=== PATIENT | male | born 1940 | race Caucasian/White ===

== ENCOUNTER 2017-02-13 12:01 | Inpatient (IN) | payer OTHER ==
[2017-02-13 12:50] LABS: EOSINOPHIL 2.4 % (0-4.5); MCH 30.1 pg (25.7-33.7); MEAN CELL VOLUME 91.3 fl (80-96); MEAN PLT VOLUME 8.1 fl (7.5-11.1); NEUTROPHILS 69.4 % (42.8-82.8); PLATELET COUNT 205 K/MM3 (134-434); RDW 14.4 % (11.9-15.9); WHITE BLOOD COUNT 6.9 K/mm3 (4.0-10.0)
--- NOTE | 2017-02-13 12:55 | PDOC ---
History of Present Illness - History of Present Illness Initial Comments: 02/13/17 16:30 The patient is a 76 year old male with a past medical hx of HTN, afib (on pradaxa), and hypothyroidism who presents to the ED sent by Dr. Ayala for evaluation of left calf pain for three days. The patient states he has left calf pain when walking. He states this pain lasts for approximately 20 minutes and then goes away. He denies any numbness or tingling. He notes he has never had pain on ambulation in the past. The patient reports he recently had a thyroid biopsy and stopped taking his Pradaxa 2-3 days before the biopsy. He states he then started taking his Pradaxa again on Friday.He reports he went to see Dr. Ayala for his symptoms and had an ultrasound of his left calf. Dr. Ayala is concerned about no circulation below the knee so he sent the patient to the ED for further evaluation. The patient denies chest pain, SOB The patient denies fever, chills The patient denies nausea, vomiting, headache PCP: Dr. Ayala <Cami Paniagua - Last Filed: 02/13/17 19:19> - General History Source: Patient Exam Limitations: No Limitations - History of Present Illness Initial Comments: 02/13/17 13:14 76y F hx of afib on pradaxa presents with L leg pain. Pt states he was <Aureliano Perales - Last Filed: 02/13/17 20:03> - General Chief Complaint: Pain Stated Complaint: PAIN, PCP SENT Time Seen by Provider: 02/13/17 12:20 Past History <Cami Paniagua - Last Filed: 02/13/17 19:19> - Past Medical History Cardiac Disorders: Yes GI Disorders: Yes (enlarged prostate) HTN: Yes Hypercholesterolemia: Yes Thyroid Disease: Yes (hypo) - Surgical History Cardiac Surgery: Yes (stents x 2: 2008) Lung Surgery: Yes (tumor removal) - Psycho/Social/Smoking Cessation Hx Anxiety: No Suicidal Ideation: No Smoking Status: No Smoking History: Never smoked Have you smoked in the past 12 months: No Number of Cigarettes Smoked Daily: 0 Information on smoking cessation initiated: No Hx Alcohol Use: No Drug/Substance Use Hx: No Substance Use Type: None, Alcohol <Aureliano Perales - Last Filed: 02/13/17 20:03> - Past Medical History Allergies/Adverse Reactions: Allergies Allergy/AdvReac Type Severity Reaction Status Date / Time No Known Allergies Allergy Verified 02/09/12 18:14 Home Medications: Ambulatory Orders Aspirin Chewable [Epi Children's Aspirin] 81 mg PO HS #0 tab.chew 03/02/12 Carvedilol Phosphate [Coreg Cr -] 80 mg PO DAILY #0 cap.sr.24h 03/02/12 Dabigatran Etexilate Mesylate [Pradaxa -] 150 mg PO BID #0 cap 03/02/12 Diltiazem HCl [Cardizem] 240 mg PO DAILY #0 tablet 03/02/12 Levothyroxine [Synthroid -] 100 mcg PO DAILY #0 tablet 03/02/12 Lisinopril [Zestril] 40 mg PO DAILY #0 tablet 03/02/12 Rosuvastatin [Crestor -] 20 mg PO HS #0 tablet 03/02/12 Hydralazine HCl [Apresoline -] 25 mg PO BID 02/13/17 Tamsulosin HCl 0.4 mg PO DAILY 02/13/17 Review of Systems - Review of Systems Able to Perform ROS?: Yes Comments:: 02/13/17 16:30 CONSTITUTIONAL: No reported: Fever, Chills, Diaphoresis, Generalized Weakness, Malaise, Loss of Appetite HEENT: No reported: Rhinorrhea, Nasal Congestion, Throat Pain, Throat Swelling, Difficulty Swallowing, Mouth Swelling, Ear Pain, Eye Pain, Visual Changes CARDIOVASCULAR: No reported: Chest Pain, Syncope, Palpitations, Irregular Heart Rate, Lightheadedness, Peripheral Edema RESPIRATORY: No reported: Cough, Shortness of Breath, SOB with Exertion, Orthopnea, Wheezing , Stridor, Hemoptysis GASTROINTESTINAL: No reported: Abdominal pain, Abdominal Distension, Nausea, Vomiting, Diarrhea, Constipation, Melena, Hematochezia GENITOURINARY: No reported: Dysuria, Frequency, Urgency, Hesitancy, Flank Pain, Genital Pain MUSCULOSKELETAL: +Left calf pain. No reported:Joint Swelling, Back pain, Neck Pain SKIN: No reported: Rash, Itching, Pallor HEMEATOLOGIC/IMMUNOLOGIC: No reported: Easy Bleeding, Easy Bruising, Lymphadenopathy, Frequent infections ENDOCRINE: No reported: Unexplained Weight Gain, Unexplained Weight Loss, Heat Intolerance , Cold Intolerance NEUROLOGIC: No reported: Headache, Focal Weakness, Paresthesias, Vertigo, Lightheadedness, Unsteady Gait, Seizure, Mental Status Changes, Incontinence PSYCHIATRIC: No reported: Anxiety, Depression <ArceliaLeoCami - Last Filed: 02/13/17 19:19> *Physical Exam - Vital Signs Last Vital Signs Temp Pulse Resp BP Pulse Ox 97.4 F L 79 18 191/95 99 02/13/17 12:04 02/13/17 12:04 02/13/17 12:04 02/13/17 12:04 02/13/17 12:04 - Physical Exam Comments: 02/13/17 16:30 GENERAL: The patient is awake, alert, and fully oriented, Nontoxic - in no acute distress. HEAD: Normocephalic, atraumatic. EYES: extraocular movements intact, sclera anicteric, conjunctiva clear. ENT: Normal voice, Moist mucous membranes. NECK: Normal range of motion, supple LUNGS: Breath sounds equal, clear to auscultation bilaterally. No wheezes, no rhonchi, no rales. HEART: irregularly irregular ABDOMEN: Soft, nontender, normoactive bowel sounds. No guarding, no rebound. . No CVA tenderness EXTREMITIES: unable to palpate pulsees on LLE, delayed cap refill, slightly cooler than contralateral leg, sensation intact, no calf tenderness, no focal tenderness, color symmetric NEUROLOGICAL: No facial assymetry, Normal speech, PSYCH: Normal mood, normal affect. SKIN: Warm, Dry, normal turgor, <GeraldnicolasCami - Last Filed: 02/13/17 19:19> - Vital Signs Last Vital Signs Temp Pulse Resp BP Pulse Ox 97.4 F L 79 18 191/95 99 02/13/17 12:04 02/13/17 12:04 02/13/17 12:04 02/13/17 12:04 02/13/17 12:04 <Aureliano Perales - Last Filed: 02/13/17 20:03> Heart Score/ECG Review - ECG Impressions Comment:: 02/13/17 16:06 Twelve-lead EKG was performed and reviewed by me. irregularly irergular rate if [address] changes suggestive ofa cute ischemia Impression: atrial fibrillation <Aureliano Perales - Last Filed: 02/13/17 20:03> ED Treatment Course - LABORATORY CBC & Chemistry Diagram: 02/13/17 12:36 02/13/17 12:36 - ADDITIONAL ORDERS Additional order review: Laboratory Results 02/13/17 02/13/17 12:36 12:36 Sodium 141 Potassium 4.0 Chloride 104 Carbon Dioxide 32 Anion Gap 5 L BUN 13 D Creatinine 0.8 Creat Clearance w eGFR > 60 Random Glucose 101 Calcium 8.6 Total Bilirubin 1.4 H D AST 29 D ALT 28 Alkaline Phosphatase 92 Total Protein 7.0 Albumin 3.7 Blood Type AB POSITIVE Antibody Screen Negative - RADIOLOGY Radiograph Interpretation: 02/13/17 19:19 EXAM: CTA abdomen and CTA pelvis and CTA lower extremity DATE: 2017-02-13 14:43: 05.0 IMAGES: 1802 HISTORY: Left arterial occlusion REPORT: Abdominal aorta is patent with no aneurysm seen. Small right renal artery. Diffuse atherosclerotic calcifications are seen likely causing stenosis of the origins of both renal arteries. Iliac and femoral arteries are patent. The bilateral femoral and right popliteal arteries appear patent. At knee level, there is occlusion of the left popliteal artery. Contrast flow is seen in the left anterior tibial artery, likely from collaterals. Minimal contrast flow is seen in the left peroneal and posterior tibial and right posterior tibial arteries. Varicose veins are seen on the left. THIS DOCUMENT HAS BEEN ELECTRONICALLY SIGNED Amish Welch MD 02/13/2017 19:04 FLORES Moreira Please call [facility] [phone] ( [phone]) with questions. <Cami Paniagua - Last Filed: 02/13/17 19:19> - LABORATORY CBC & Chemistry Diagram: 02/13/17 12:36 02/13/17 12:36 <Aureliano Perales - Last Filed: 02/13/17 20:03> Medical Decision Making - Medical Decision Making 02/13/17 19:38 pt with symtoms c/w PAD, currently no pain, +delayed cap refil, extremity is warm to touch, sensation intact CTA shows left pop occlusion with sugestion of callatoral flow distally case dw dr. rojas - agrees with admission - if pt took pradaxa today can hold heparin, but if not, can give hearpin drip will take pt to angio tmorrow npo after midnight will notify dr. asher 02/13/17 19:[address] asher agree with admission to med surg Case discussed in detail with admitting physician including history, physical exam and ancillary studies. Admitting physician has assumed care for the patient, will follow all pending diagnostics and will complete the evaluation and treatment. 02/13/17 20:01 02/13/17 20:03 pts last dose of pradaxa was ths AM and takes it BID <Aureliano Perales - Last Filed: 02/13/17 20:03> *DC/Admit/Observation/Transfer - Attestations Scribe Attestion: 02/13/17 16:30 Documentation prepared by Cami Paniagua, acting as medical file clerk for Aureliano Perales MD, MD/DO. <Cami Paniagua - Last Filed: 02/13/17 19:19> - Discharge Dispostion Admit: Yes <Aureliano Perales - Last Filed: 02/13/17 20:03> Diagnosis at time of Disposition: Peripheral arterial occlusive disease - Discharge Dispostion Condition at time of disposition: Guarded - Referrals Referrals: Lam Ayala MD [Primary Care Provider] -
[2017-02-13 13:14] LABS: ALBUMIN 3.7 g/dl (3.4-5.0); ANION GAP 5 (8-16); BILIRUBIN,TOTAL 1.4 mg/dL (0.2-1.0); CALCIUM 8.6 mg/dL (8.5-10.1); CO2 32 mmol/L (21-32); COCKROFT - GAULT 86.82; CREATININE 0.8 mg/dL (0.7-1.3); GLUCOSE,RANDOM 101 mg/dL (74-106); INR 1.23 (0.82-1.09); PROTHROMBIN TIME (PATIENT) 13.6 SEC (9.98-11.88); SGOT/AST 29 U/L (15-37); SGPT/ALT 28 U/L (12-78)
[2017-02-13 13:15] LABS: ALK PHOS 92 U/L (45-117)
--- NOTE | 2017-02-13 16:07 | EKG ---
Test Reason : Blood Pressure : / mmHG Vent. Rate : 081 BPM Atrial Rate : 117 BPM P-R Int : 000 ms QRS Dur : 078 ms QT Int : 376 ms P-R-T Axes : 000 011 054 degrees QTc Int : 436 ms POOR DATA QUALITY, INTERPRETATION MAY BE ADVERSELY AFFECTED ATRIAL FIBRILLATION ABNORMAL ECG WHEN COMPARED WITH ECG OF 27-FEB-2012 16:08, NO SIGNIFICANT CHANGE WAS FOUND Confirmed by NANCI DAMICO, CHELITA ([id number]) on 02/13/2017 4:07:30 PM Referred By: Confirmed By:CHELITA CHRISTINE MD
[2017-02-13] MEDS ORDERED: HEPARIN NA (PORCINE) 5,000 UNITS/ML 1ML VIAL IVPUSH ONE (20:02)
[2017-02-13] MEDS ORDERED: oxyCODONE HCL 5 MG TABLET PO PRN (20:12)
[2017-02-13] MEDS ORDERED: ONDANSETRON 4 MG/2 ML VIAL IVPB PRN (20:12)
[2017-02-13] MEDS ORDERED: ACETAMINOPHEN 325 MG TABLET (FP) PO PRN (20:12)
[2017-02-13] MEDS ORDERED: HEPARIN INFUSION - 500 ML IVPB ONE (20:27)
[2017-02-13] MEDS ORDERED: HEPARIN NA (PORCINE) 5,000 UNITS/ML 1ML VIAL ONE (20:27)
[2017-02-13] MEDS: HEPARIN INFUSION - 500 ML IVPB SCH (20:35)
[2017-02-13] MEDS ORDERED: ROSUVASTATIN CA 40 MG TABLET PO SCH (22:00)
[2017-02-13] MEDS ORDERED: ASPIRIN 81 MG CHEWABLE TABLETS PO SCH (22:00)
[2017-02-13] MEDS: hydrALAZINE HCL 25 MG TABLET (FP) PO SCH (23:07)
[2017-02-13] MEDS: DOCUSATE SODIUM 100 MG CAPSULE (FP) PO SCH (23:08)
[2017-02-13] MEDS ORDERED: ROSUVASTATIN CA 10 MG TABLET (FP) PO SCH (23:15)
[2017-02-13] MEDS ORDERED: ROSUVASTATIN CA 20 MG TABLET (FP) PO SCH ×2 (23:15)
[2017-02-14 04:48] VITALS: BMI 23.3
[2017-02-14] MEDS ORDERED: LEVOTHYROXINE NA 100 MCG TABLET (FP) PO SCH ×2 (07:00→10:00)
[2017-02-14 07:17] LABS: EOSINOPHIL 2.6 % (0-4.5); MCH 30.5 pg (25.7-33.7); MCHC 33.6 g/dl (32.0-35.9); MEAN CELL VOLUME 90.6 fl (80-96); MEAN PLT VOLUME 8.1 fl (7.5-11.1); NEUTROPHILS 66.1 % (42.8-82.8); PLATELET COUNT 209 K/MM3 (134-434); RDW 14.5 % (11.9-15.9); WHITE BLOOD COUNT 7.1 K/mm3 (4.0-10.0)
[2017-02-14 07:39] LABS: CALCIUM 8.7 mg/dL (8.5-10.1); COCKROFT - GAULT 73.68; CREATININE 0.9 mg/dL (0.7-1.3); MAGNESIUM 2.1 mg/dL (1.8-2.4); PHOSPHOROUS 4.3 mg/dL (2.5-4.9)
[2017-02-14] MEDS ORDERED: HEPARIN NA (PORCINE) 5,000 UNITS/ML 1ML VIAL IVPUSH PRN ×2 (09:03)
[2017-02-14] MEDS: HEPARIN INFUSION - 500 ML IVPB SCH (09:24)
[2017-02-14] MEDS: hydrALAZINE HCL 25 MG TABLET (FP) PO SCH ×2 (09:56→21:33)
[2017-02-14] MEDS ORDERED: PT OWN MED DRAWER 7, Y5N ONE (09:59)
[2017-02-14] MEDS ORDERED: POLYETHYLENE GLYCOL 3350 119 GM BTL PO SCH (10:00)
[2017-02-14] MEDS ORDERED: LISINOPRIL 20 MG TABLET (FP) PO SCH (10:00)
[2017-02-14] MEDS ORDERED: CARVEDILOL PHOSPHATE 80 MG PO SCH (10:00)
[2017-02-14] MEDS ORDERED: TAMSULOSIN HCL 0.4 MG CAP.ER.24H (FP) PO SCH (10:00)
[2017-02-14] MEDS: DOCUSATE SODIUM 100 MG CAPSULE (FP) PO SCH ×2 (10:03→21:33)
--- NOTE | 2017-02-14 12:19 | HP ---
Admitting History and Physical - Primary Care Physician PCP: Lam Ayala - Admission Chief Complaint: My leg hurt when walking History of Present Illness: Mr Boggs is a very pleasant 76 year old male who comes in with pain in his left leg while walking. He says he is very active and has been doing really well. However on Friday he noted that he was having severe pain in his left leg after walking. It worsened with the distance he walks. He would sit for 10-15 minutes and the pain would resolve. It would recur with exertion. On Friday he did not walk much so did not have pain. However Friday and the pain was still present with ambulation so he presented to Dr Ayala who recommended that he come to the ER for evaluation. Aside from the leg pain he is without complaint. He denies fevers, chills, lightheadedness, dizziness, passing out, chest pain, chest pressure, shortness of breath, coughing, nausea, vomiting, diarrhea, constipation, difficulty or pain on urination, or swelling. He says he is pain free now. History Source: Patient Limitations to Obtaining History: No Limitations - Past Medical History Cardiovascular: Yes: HTN Renal/: Yes: BPH Endocrine: Yes: Hypothyroidism - Past Surgical History Past Surgical History: Yes: Cataract Removal - Smoking History Smoking history: Never smoked Have you smoked in the past 12 months: No Aproximately how many cigarettes per day: 0 - Alcohol/Substance Use Hx Alcohol Use: No History of Substance Use: reports: None - Social History Usual Living Arrangement: Yes: Alone ADL: Independent History of Recent Travel: No Home Medications - Allergies Allergies/Adverse Reactions: Allergies Allergy/AdvReac Type Severity Reaction Status Date / Time No Known Allergies Allergy Verified 02/09/12 18:14 - Home Medications Home Medications: Ambulatory Orders Aspirin Chewable [Epi Children's Aspirin] 81 mg PO HS #0 tab.chew 03/02/12 Carvedilol Phosphate [Coreg Cr -] 80 mg PO DAILY #0 cap.sr.24h 03/02/12 Dabigatran Etexilate Mesylate [Pradaxa -] 150 mg PO BID #0 cap 03/02/12 Diltiazem HCl [Cardizem] 240 mg PO DAILY #0 tablet 03/02/12 Levothyroxine [Synthroid -] 100 mcg PO DAILY #0 tablet 03/02/12 Lisinopril [Zestril] 40 mg PO DAILY #0 tablet 03/02/12 Rosuvastatin [Crestor -] 20 mg PO HS #0 tablet 03/02/12 Hydralazine HCl [Apresoline -] 25 mg PO BID 02/13/17 Tamsulosin HCl 0.4 mg PO DAILY 02/13/17 Family Disease History - Family Disease History Family Disease History: CA: Father Review of Systems Findings/Remarks: Full review of systems obtained, as per HPI and otherwise negative Physical Examination Vital Signs: Vital Signs Temperature 98.3 F 02/14/17 11:49 Pulse Rate 90 02/14/17 11:49 Respiratory Rate 20 02/14/17 11:49 Blood Pressure 165/90 02/14/17 11:49 O2 Sat by Pulse Oximetry (%) 97 02/13/17 23:00 Constitutional: Yes: Well Nourished, No Distress, Calm Eyes: Yes: Conjunctiva Clear, EOM Intact HENT: Yes: Atraumatic, Normocephalic Cardiovascular: Yes: Regular Rate and Rhythm. No: Gallop, Murmur, Rub Respiratory: Yes: Regular, CTA Bilaterally. No: Rales, Rhonchi, Wheezes Gastrointestinal: Yes: Normal Bowel Sounds, Soft. No: Distention, Tenderness Extremities: Yes: WNL Edema: No Labs: CBC, BMP 02/14/17 06:15 02/14/17 06:15 Imaging - Results EKG: Image Reviewed Problem List - Problems (1) Peripheral arterial occlusive disease Assessment/Plan: -patient with claudication, concern for possible thrombus -admit to the hospital -holding anticoagulation for intervention -vascular surgery following and planning on angiogram with possible thrombectomy Code(s): I77.9 - DISORDER OF ARTERIES AND ARTERIOLES, UNSPECIFIED (2) HTN (hypertension) Assessment/Plan: -continue coreg, diltiazem, lisinopril, and hydralazine Code(s): I10 - ESSENTIAL (PRIMARY) HYPERTENSION Qualifiers: Hypertension type: essential hypertension Qualified Code(s): I10 - Essential (primary) hypertension (3) Hypothyroid Assessment/Plan: -continue levothyroxine Code(s): E03.9 - HYPOTHYROIDISM, UNSPECIFIED (4) BPH (benign prostatic hyperplasia) Assessment/Plan: -continue tamsulosin Code(s): N40.0 - BENIGN PROSTATIC HYPERPLASIA WITHOUT LOWER URINRY TRACT SYMP Qualifiers: Lower urinary tract symptom presence: symptoms absent
[2017-02-14] MEDS ORDERED: MIDAZOLAM HCL 2 MG/2 ML SINGLE DOSE VIAL ONE ×3 (14:46→14:56)
[2017-02-14] MEDS ORDERED: ceFAZolin SODIUM 1 GM VIAL IVPB ONE (15:00)
[2017-02-14] MEDS ORDERED: ceFAZolin SODIUM 1 GM VIAL ONE (15:01)
[2017-02-14] MEDS ORDERED: HEPARIN NA (PORCINE) 5,000 UNITS/ML 1ML VIAL ONE ×2 (15:18→16:01)
[2017-02-14] MEDS ORDERED: PROPOFOL 20 ML ONE (15:44)
[2017-02-14] MEDS ORDERED: LIDOCAINE HCL 1%, 10 MG/ML (20ML VIAL) IJ ONE (16:45)
--- NOTE | 2017-02-14 16:54 | OP ---
Operative Note - Note: Operative Date: 02/14/17 Pre-Operative Diagnosis: LLE claudication Operation: Aortogram, LLE angiogram, POP artery angioplasty, tibial artery angioplasty , open thrombectomy of Popliteal artery, tibial artery Findings: thrombus in popliteal artery and tibial arteries Post-Operative Diagnosis: Same as Pre-op Surgeon: Farhan Morales Anesthesia: Fractional Estimated Blood Loss (mls): 100 Operative Report Dictated: Yes
[2017-02-14] MEDS ORDERED: oxyCODONE HCL 5 MG TABLET PO PRN (17:04)
[2017-02-14] MEDS ORDERED: ACETAMINOPHEN 325 MG TABLET (FP) PO PRN (17:04)
[2017-02-14] MEDS ORDERED: ONDANSETRON 4 MG/2 ML VIAL IVPB PRN (17:04)
[2017-02-14] MEDS ORDERED: ONDANSETRON 4 MG/2 ML VIAL IVPUSH PRN (17:09)
--- NOTE | 2017-02-14 17:53 | PN ---
Progress Note (short form) - Note Progress Note: Vascular Surgery S/P open thrombectomy for thrombus in popliteal and tibial arteries. Pradaxa restarted after operation. Palpable PT pulse. Can be out of be to chair yanira. Can ambulate on friday. Will follow Farhan Morales DO
[2017-02-14] MEDS: DABIGATRAN ETEXILATE MESYLATE 150 MG CAPSULE PO SCH ×2 (18:00→21:52)
[2017-02-14] MEDS: LACTATED RINGERS SOLUTION 1,000 ML IV SCH (18:17)
[2017-02-14] MEDS: ROSUVASTATIN CA 20 MG TABLET (FP) PO SCH (21:31)
[2017-02-14] MEDS: ASPIRIN 81 MG CHEWABLE TABLETS PO SCH (21:31)
[2017-02-15] MEDS: LEVOTHYROXINE NA 100 MCG TABLET (FP) PO SCH (06:28)
--- NOTE | 2017-02-15 07:59 | OP ---
DATE OF OPERATION: 02/14/2017 PREOPERATIVE DIAGNOSIS: Left lower extremity claudiation. POSTOPERATIVE DIAGNOSIS: Left lower extremity claudiation. PROCEDURE: Aortogram, left lower extremity angiogram, popliteal artery, anterior tibial artery angioplasty, open thrombectomy of popliteal artery and anterior tibial artery. SURGEON: Farhan Aguirre MD ANESTHESIA: Fractional. BLOOD LOSS: 100 mL. INDICATIONS: The patient is a 71-year-old male who came into his PMDs office complaining of one-block claudication. He recently had a thyroid biopsy done last week, and his Pradaxa was stopped for atrial fibrillation. He was then restarted thereafter, but on Friday, he developed a sharp pain whenever he walked. At this point, he came into the ER. He had a CTA performed that showed that he had a popliteal artery occlusion on the left side going into the TP trunk. At this point, it was though that we would do an angiogram and see if he needed an open thrombectomy versus just traditional angioplasty. Patient was consented for the procedure understanding all risks, benefits, and alternatives, and then taken to the operating room. PROCEDURE IN DETAIL: Once in the operating suite, he was placed on the operating table in the supine manner, and the area of the left and right groins were prepped and draped in the sterile surgical manner. We then went ahead and injected 10 mL of 0.5% lidocaine over the right common femoral artery. We then used our micropuncture needle, punctured the right common femoral artery, a micropuncture wire inserted, micropuncture sheath inserted, and a traditional 5-Belarusian sheath was inserted. We then placed a 0.035 floppy guidewire up into the aorta followed by a Merit catheter. We then shot an aortogram by hand injection which showed that the aorta and iliac arteries were without any disease, but were quite tortuous. We then placed a 0.035 stiff guidewire up and over into the left common femoral artery, and our Merit catheter followed. We then shot an angiogram of the left lower extremity showing that the common femoral artery, profunda, and the SFA were patent. Behind-knee popliteal artery was occluded with clot. TP trunk was occluded, and the proximal PT artery was occluded, but the main runoff was PT into the foot. At this point, we placed a 0.035 stiff guidewire into the SFA to guide our Merit catheter, placed a 6 x 45 crossover sheath, 5000 units of IV heparin were administered to the patient. We then went ahead and placed a 0.[address] the way down into the PT artery in exchange for a 0.014 automatic pilot mechanic wire. We then used a 2.5 x 210 balloon and performed angioplasty of the tibial artery into the popliteal artery. We then used a 4 x 8 Ultraverse balloon and performed angioplasty of the popliteal artery. We then shot an angiogram of the left lower extremity showing that the clot was still present and there was no resolution. At this point, we decided that we would just do an open thrombectomy when we went over to the left groin and made a 7-cm incision over the palpable left common femoral artery pulse. We then went used Bovie cautery and got down to the femoral sheath. Femoral sheath was then opened. Left common femoral artery was dissected, profunda was dissected, and the SFA was dissected. We then got control of all 3 blood vessels. We then admitted 3000 units of IV heparin. We then went ahead and used a No. 11 blade and made a transverse incision in the left common femoral artery. We then went ahead and used a No. 4 Phoebe, and under fluoroscopy, we were able to retrieve all the clot from the posterior tibial artery and the popliteal artery by making multiple passes. We then went ahead and placed a 5-Belarusian sheath into our arteriotomy site and shot an angiogram of the left lower extremity showing that there was good brisk flow, the popliteal artery was patent, and the posterior tibial artery went all the way into the foot. At this point, we removed our sheath. We then used 6-0 Prolene double-arm and closed the artery in a continuous manner. Once the artery was closed, we opened the distal artery first, then, the proximal artery. We then irrigated the wound copiously. There was no bleeding. Surgicel was placed. Then, 3-0 Vicryl was used, and subcutaneous tissue was approximated in an interrupted manner. Skin was closed with skin anna. We then brought our crossover sheath up and over, and StarClose device was deployed in the right common femoral artery. Pressure was held in the right common femoral artery for 5 minutes. There was no bleeding. Area was wet and dried, and Dermabond was placed. The patient tolerated the procedure with no complications. At the end of the procedure, patient had palpable PT pulse. Patient tolerated the procedure. There were no complications. FARHAN AGUIRRE DO [id number]
[2017-02-15 08:34] LABS: BASOPHIL 0.8 % (0-2.0); EOSINOPHIL 1.5 % (0-4.5); MCH 30.3 pg (25.7-33.7); MCHC 33.2 g/dl (32.0-35.9); MEAN CELL VOLUME 91.1 fl (80-96); MEAN PLT VOLUME 8.2 fl (7.5-11.1); NEUTROPHILS 67.5 % (42.8-82.8); PLATELET COUNT 173 K/MM3 (134-434); RDW 14.4 % (11.9-15.9); WHITE BLOOD COUNT 7.7 K/mm3 (4.0-10.0)
[2017-02-15] MEDS ORDERED: PT OWN MED DRAWER 7, Y5N ONE ×2 (08:49→21:00)
[2017-02-15 08:56] LABS: CALCIUM 8.1 mg/dL (8.5-10.1); COCKROFT - GAULT 73.68; CREATININE 0.9 mg/dL (0.7-1.3); MAGNESIUM 1.9 mg/dL (1.8-2.4); PHOSPHOROUS 4.2 mg/dL (2.5-4.9)
[2017-02-15] MEDS: TAMSULOSIN HCL 0.4 MG CAP.ER.24H (FP) PO SCH (09:25)
[2017-02-15] MEDS: hydrALAZINE HCL 25 MG TABLET (FP) PO SCH ×2 (09:35→23:17)
[2017-02-15] MEDS: DOCUSATE SODIUM 100 MG CAPSULE (FP) PO SCH ×2 (09:35→23:16)
[2017-02-15] MEDS: LISINOPRIL 20 MG TABLET (FP) PO SCH (09:35)
[2017-02-15] MEDS: CARVEDILOL PHOSPHATE 80 MG PO SCH (09:37)
[2017-02-15] MEDS: POLYETHYLENE GLYCOL 3350 119 GM BTL PO SCH (09:38)
[2017-02-15] MEDS: DABIGATRAN ETEXILATE MESYLATE 150 MG CAPSULE PO SCH ×2 (09:38→23:17)
--- NOTE | 2017-02-15 09:38 | PN ---
Progress Note (short form) - Note Progress Note: Vascular Surgery Pt seen and examined. POD#1 open thrombectomy LLE Palpable PT pulse. Can ambulate. Cont pradaxa Farhan Morales DO
--- NOTE | 2017-02-15 11:08 | PN ---
Progress Note, Physician Chief Complaint: Left LE Pain History of Present Illness: 76 year old male H?o HTN, Dyslipedemia, PVD ,present with Left Calf pain while walking , underwent Left POP and Tibial A angioplasty and open thrombectomy on , now on oral AC. - Current Medication List Current Medications: Active Medications Acetaminophen (Tylenol -) 650 mg PO Q4H PRN PRN Reason: FEVER OR PAIN Aspirin (Asa -) 81 mg PO HS [facility] Last Admin: 02/14/17 21:31 Dose: 81 mg Carvedilol (Coreg Cr -) 80 mg PO DAILY [facility] Last Admin: 02/15/17 09:37 Dose: 80 mg Dabigatran (Pradaxa -) 150 mg PO BID [facility] Last Admin: 02/15/17 09:38 Dose: 150 mg Diltiazem HCl (Cardizem Cd -) 240 mg PO DAILY [facility] Last Admin: 02/15/17 09:36 Dose: 240 mg Docusate Sodium (Colace -) 100 mg PO BID [facility] Last Admin: 02/15/17 09:35 Dose: 100 mg Hydralazine HCl (Apresoline -) 25 mg PO BID [facility] Last Admin: 02/15/17 09:35 Dose: 25 mg Lactated Ringer's (Lactated Ringers Solution) 1,000 mls @ 125 mls/hr IV ASDIR [facility] Last Admin: 02/14/17 18:17 Dose: 125 mls/hr Levothyroxine Sodium (Synthroid -) 100 mcg PO DAILY@0700 [facility] Last Admin: 02/15/17 06:28 Dose: 100 mcg Lisinopril (Prinivil) 40 mg PO DAILY [facility] Last Admin: 02/15/17 09:35 Dose: 40 mg Ondansetron HCl (Zofran Injection) 4 mg IVPB Q6H PRN PRN Reason: NAUSEA Oxycodone HCl (Roxicodone -) 5 mg PO Q4H PRN PRN Reason: PAIN Last Admin: 02/14/17 21:31 Dose: 5 mg Polyethylene Glycol (Miralax (For Daily Use) -) 17 gm PO DAILY [facility] Last Admin: 02/15/17 09:38 Dose: 17 gm Rosuvastatin Calcium (Crestor -) 20 mg PO HS [facility] Last Admin: 02/14/17 21:31 Dose: 20 mg Tamsulosin HCl (Flomax -) 0.4 mg PO DAILY@0830 [facility] Last Admin: 02/15/17 09:25 Dose: 0.4 mg - Objective Vital Signs: Vital Signs Temperature 99 F 02/15/17 09:33 Pulse Rate 100 H 02/15/17 09:33 Respiratory Rate 18 02/15/17 09:33 Blood Pressure 159/81 02/15/17 09:33 O2 Sat by Pulse Oximetry (%) 97 02/14/17 21:00 Constitutional: Yes: Well Nourished, No Distress Eyes: Yes: WNL, Conjunctiva Clear, EOM Intact HENT: Yes: WNL, Atraumatic, Normocephalic Neck: Yes: WNL, Supple, Trachea Midline Cardiovascular: Yes: WNL Respiratory: Yes: WNL, Regular, CTA Bilaterally Gastrointestinal: Yes: WNL, Normal Bowel Sounds, Soft, Hematemesis ...Rectal Exam: Yes: Deferred Genitourinary: Yes: WNL Musculoskeletal: Yes: WNL. No: Back Pain Extremities: Yes: WNL. No: Calf Tenderness Edema: No Peripheral Pulses WNL: Yes Peripheral Pulses: Left Doralis Pedis: 1+, Right Dorsalis Pedis: 1+ Integumentary: Yes: WNL Wound/Incision: Yes: Clean/Dry Neurological: Yes: WNL, Alert, Oriented ...Motor Strength: WNL Psychiatric: Yes: WNL, Alert, Oriented Labs: CBC, BMP 02/15/17 08:15 02/15/17 08:15 INR, PTT INR 1.23 (0.82-1.09) H 02/13/17 12:36 - ....Imaging Ultrasound: Image Reviewed, Other (LE angigram with Distal runoff show Left Popliteal A thrombus extending to ant tibial A) Problem List - Problems (1) Peripheral arterial occlusive disease Assessment/Plan: Patient underwent angioplasty and open thrombectomy by Dr Morales, doing well now on oral AC, peripheral pulse are palpable. Code(s): I77.9 - DISORDER OF ARTERIES AND ARTERIOLES, UNSPECIFIED (2) HTN (hypertension) Assessment/Plan: well controlled on current medications Cont same. Code(s): I10 - ESSENTIAL (PRIMARY) HYPERTENSION Qualifiers: Hypertension type: essential hypertension Qualified Code(s): I10 - Essential (primary) hypertension (3) BPH (benign prostatic hyperplasia) Assessment/Plan: Chronic no active issue cont home meds Code(s): N40.0 - BENIGN PROSTATIC HYPERPLASIA WITHOUT LOWER URINRY TRACT SYMP Qualifiers: Lower urinary tract symptom presence: symptoms absent (4) Hypothyroid Assessment/Plan: On Levothyroxine cont same dose F/U TSH as out patient. Code(s): E03.9 - HYPOTHYROIDISM, UNSPECIFIED (5) Hyperlipidemia Assessment/Plan: On Crestor at home cont same F/U Lipid panel as out patient. Code(s): E78.5 - HYPERLIPIDEMIA, UNSPECIFIED
--- NOTE | 2017-02-15 11:57 | PN ---
Progress Note (short form) - Note Progress Note: Post Anesthesia note POD#1, S/P left lower extremity thrombectomy in MAC and local. Pat seen and examined, VSS. No complaints, No post anesthesia complications. Signing off.
[2017-02-15] MEDS: LACTATED RINGERS SOLUTION 1,000 ML IV SCH (22:01)
[2017-02-15] MEDS: ASPIRIN 81 MG CHEWABLE TABLETS PO SCH (23:16)
[2017-02-15] MEDS: ROSUVASTATIN CA 20 MG TABLET (FP) PO SCH (23:16)
[2017-02-16] MEDS: LEVOTHYROXINE NA 100 MCG TABLET (FP) PO SCH (06:12)
[2017-02-16 08:56] LABS: BASOPHIL 0.5 % (0-2.0); EOSINOPHIL 4.1 % (0-4.5); MCH 30.6 pg (25.7-33.7); MCHC 33.7 g/dl (32.0-35.9); MEAN CELL VOLUME 90.8 fl (80-96); MEAN PLT VOLUME 8.4 fl (7.5-11.1); NEUTROPHILS 67.8 % (42.8-82.8); PLATELET COUNT 167 K/MM3 (134-434); RDW 14.4 % (11.9-15.9); WHITE BLOOD COUNT 7.2 K/mm3 (4.0-10.0)
[2017-02-16 09:14] LABS: ALBUMIN 3.2 g/dl (3.4-5.0); ALK PHOS 79 U/L (45-117); ANION GAP 8 (8-16); BILIRUBIN,TOTAL 1.9 mg/dL (0.2-1.0); CALCIUM 8.1 mg/dL (8.5-10.1); CO2 29 mmol/L (21-32); COCKROFT - GAULT 66.32; GLUCOSE,RANDOM 108 mg/dL (74-106); SGOT/AST 22 U/L (15-37); SGPT/ALT 23 U/L (12-78); TOT PROT 6.3 g/dl (6.4-8.2)
[2017-02-16] MEDS: TAMSULOSIN HCL 0.4 MG CAP.ER.24H (FP) PO SCH (09:15)
[2017-02-16] MEDS: hydrALAZINE HCL 25 MG TABLET (FP) PO SCH ×2 (10:09→21:41)
[2017-02-16] MEDS: LISINOPRIL 20 MG TABLET (FP) PO SCH (10:09)
[2017-02-16] MEDS: DOCUSATE SODIUM 100 MG CAPSULE (FP) PO SCH ×2 (10:10→21:40)
[2017-02-16] MEDS: CARVEDILOL PHOSPHATE 80 MG PO SCH (10:11)
[2017-02-16] MEDS: POLYETHYLENE GLYCOL 3350 119 GM BTL PO SCH (10:11)
[2017-02-16] MEDS: DABIGATRAN ETEXILATE MESYLATE 150 MG CAPSULE PO SCH ×2 (10:15→21:41)
--- NOTE | 2017-02-16 11:01 | PN ---
[id number] HTN, Dyslipedemia, PVD ,present with Left Calf pain while walking , underwent Left POP and Tibial A angioplasty and open thrombectomy on , now on oral AC. - Current Medication List Current Medications: Active Medications Acetaminophen (Tylenol -) 650 mg PO Q4H PRN PRN Reason: FEVER OR PAIN Aspirin (Asa -) 81 mg PO HS [facility] Last Admin: 02/15/17 23:16 Dose: 81 mg Carvedilol (Coreg Cr -) 80 mg PO DAILY [facility] Last Admin: 02/16/17 10:11 Dose: 80 mg Dabigatran (Pradaxa -) 150 mg PO BID [facility] Last Admin: 02/16/17 10:15 Dose: 150 mg Diltiazem HCl (Cardizem Cd -) 240 mg PO DAILY [facility] Last Admin: 02/16/17 10:09 Dose: 240 mg Docusate Sodium (Colace -) 100 mg PO BID [facility] Last Admin: 02/16/17 10:10 Dose: 100 mg Hydralazine HCl (Apresoline -) 25 mg PO BID [facility] Last Admin: 02/16/17 10:09 Dose: 25 mg Lactated Ringer's (Lactated Ringers Solution) 1,000 mls @ 125 mls/hr IV ASDIR [facility] Last Admin: 02/15/17 22:01 Dose: Not Given Levothyroxine Sodium (Synthroid -) 100 mcg PO DAILY@0700 [facility] Last Admin: 02/16/17 06:12 Dose: 100 mcg Lisinopril (Prinivil) 40 mg PO DAILY [facility] Last Admin: 02/16/17 10:09 Dose: 40 mg Ondansetron HCl (Zofran Injection) 4 mg IVPB Q6H PRN PRN Reason: NAUSEA Oxycodone HCl (Roxicodone -) 5 mg PO Q4H PRN PRN Reason: PAIN Last Admin: 02/14/17 21:31 Dose: 5 mg Polyethylene Glycol (Miralax (For Daily Use) -) 17 gm PO DAILY [facility] Last Admin: 02/16/17 10:11 Dose: 17 gm Rosuvastatin Calcium (Crestor -) 20 mg PO HS [facility] Last Admin: 02/15/17 23:16 Dose: 20 mg Tamsulosin HCl (Flomax -) 0.4 mg PO DAILY@0830 [facility] Last Admin: 02/16/17 09:15 Dose: 0.4 mg - Objective Vital Signs: Vital Signs Temperature 97.7 F 02/16/17 06:00 Pulse Rate 83 02/16/17 06:00 Respiratory Rate 20 02/16/17 06:00 Blood Pressure 118/69 02/16/17 06:00 O2 Sat by Pulse Oximetry (%) 97 02/15/17 21:00 Elderly man comfortable Denies any new Complaint HEENT: Mm moist no anemia, PERRLA EOMI NECK: No JVD No Bruit , Trachea central CHEST: CTA B/L CVS; S1S2 R no m/g/r ABD; No distntion, non tender Bs + EXT: Left LE s/p Thrpombectomy, wound is clean, DP plapable, no calf tenderness [employer] COORDINATOR: AOX3, non focal Constitutional: Yes: Well Nourished Labs: CBC, BMP 02/16/17 07:45 02/16/17 07:45 INR, PTT INR 1.23 (0.82-1.09) H 02/13/17 12:36 - ....Imaging Cat Scan: Report Reviewed, Image Reviewed Problem List - Problems (1) Peripheral arterial occlusive disease Assessment/Plan: Patient underwent angioplasty and open thrombectomy by Dr Morales, doing well now on oral AC, peripheral pulse are palpable. Code(s): I77.9 - DISORDER OF ARTERIES AND ARTERIOLES, UNSPECIFIED (2) HTN (hypertension) Assessment/Plan: well controlled on current medications Cont same. Code(s): I10 - ESSENTIAL (PRIMARY) HYPERTENSION Qualifiers: Hypertension type: essential hypertension Qualified Code(s): I10 - Essential (primary) hypertension (3) BPH (benign prostatic hyperplasia) Assessment/Plan: Chronic no active issue cont home meds Code(s): N40.0 - BENIGN PROSTATIC HYPERPLASIA WITHOUT LOWER URINRY TRACT SYMP Qualifiers: Lower urinary tract symptom presence: symptoms absent (4) Hypothyroid Assessment/Plan: On Levothyroxine cont same dose F/U TSH as out patient. Code(s): E03.9 - HYPOTHYROIDISM, UNSPECIFIED (5) Hyperlipidemia Assessment/Plan: On Crestor at home cont same F/U Lipid panel as out patient. Code(s): E78.5 - HYPERLIPIDEMIA, UNSPECIFIED
[2017-02-16] MEDS: ROSUVASTATIN CA 20 MG TABLET (FP) PO SCH (21:40)
[2017-02-16] MEDS: ASPIRIN 81 MG CHEWABLE TABLETS PO SCH (21:40)
[2017-02-17] MEDS: LEVOTHYROXINE NA 100 MCG TABLET (FP) PO SCH (06:35)
[2017-02-17 07:36] LABS: BASOPHIL 0.7 % (0-2.0); EOSINOPHIL 5.6 % (0-4.5); MCH 30.7 pg (25.7-33.7); MCHC 33.7 g/dl (32.0-35.9); MEAN CELL VOLUME 91.1 fl (80-96); MEAN PLT VOLUME 8.5 fl (7.5-11.1); NEUTROPHILS 64.4 % (42.8-82.8); PLATELET COUNT 175 K/MM3 (134-434); RDW 14.4 % (11.9-15.9); WHITE BLOOD COUNT 6.1 K/mm3 (4.0-10.0)
[2017-02-17 08:09] LABS: ALBUMIN 3.1 g/dl (3.4-5.0); ALK PHOS 82 U/L (45-117); ANION GAP 8 (8-16); BILIRUBIN,TOTAL 1.4 mg/dL (0.2-1.0); CO2 30 mmol/L (21-32); CREATININE 0.8 mg/dL (0.7-1.3); GLUCOSE,RANDOM 109 mg/dL (74-106); SGOT/AST 31 U/L (15-37); SGPT/ALT 31 U/L (12-78); TOT PROT 6.3 g/dl (6.4-8.2)
[2017-02-17] MEDS: TAMSULOSIN HCL 0.4 MG CAP.ER.24H (FP) PO SCH (08:29)
[2017-02-17 09:18] VITALS: BP 139/70; PULSE 86; TEMP 97.2
[2017-02-17] MEDS ORDERED: PT OWN MED DRAWER 7, Y5N ONE (09:36)
[2017-02-17] MEDS: LISINOPRIL 20 MG TABLET (FP) PO SCH (09:38)
[2017-02-17] MEDS: hydrALAZINE HCL 25 MG TABLET (FP) PO SCH (09:38)
[2017-02-17] MEDS: DOCUSATE SODIUM 100 MG CAPSULE (FP) PO SCH (09:38)
[2017-02-17] MEDS: POLYETHYLENE GLYCOL 3350 119 GM BTL PO SCH (09:39)
[2017-02-17] MEDS: DABIGATRAN ETEXILATE MESYLATE 150 MG CAPSULE PO SCH (09:39)
[2017-02-17] MEDS: CARVEDILOL PHOSPHATE 80 MG PO SCH (09:40)
--- NOTE | 2017-02-17 10:02 | PN ---
Progress Note (short form) - Note Progress Note: Pt with complaints of occasional cramping pain to back of left knee. Ambulating without assistance. Vital Signs Period Temp Pulse Resp BP Sys/Michaels Pulse Ox Last 24 Hr 97.2 F-98.7 F 61-86 16-20 131-141/59-94 97 PE: Left lower extremity: Inc c/d/i with anna to groin. No erythema, drainage or masses. palpable DP/PT pulse. foot warm. Calf soft and without swelling. CBC, BMP 02/17/17 05:35 02/17/17 05:35 A/P: 76 yo male s/p left lower extremity thrombectomy, POD#3 Dressing changed today to left groin, incision healing well. Keep area clean and dry. Continue Joyce D/w Dr. Morales, follow-up next Friday in the wound clinic for staple removal
--- NOTE | 2017-02-17 12:26 | DS ---
Physical Examination Vital Signs: Vital Signs Temperature 97.2 F L 02/17/17 09:17 Pulse Rate 86 02/17/17 09:17 Respiratory Rate 20 02/17/17 09:17 Blood Pressure 139/70 02/17/17 09:17 O2 Sat by Pulse Oximetry (%) 99 02/17/17 11:00 Constitutional: Yes: Well Nourished, No Distress, Calm Cardiovascular: Yes: Regular Rate and Rhythm. No: Gallop, Murmur, Rub Respiratory: Yes: Regular, CTA Bilaterally. No: Rales, Rhonchi, Wheezes Gastrointestinal: Yes: Normal Bowel Sounds, Soft. No: Distention, Tenderness Extremities: Yes: WNL Edema: Yes Edema: LLE: Trace Labs: CBC, BMP 02/17/17 05:35 02/17/17 05:35 Discharge Summary Reason For Visit: PERIPHERAL ARTERIAL OCCLUSIVE DISEASE Current Active Problems BPH (benign prostatic hyperplasia) (Acute) HTN (hypertension) (Acute) Hyperlipidemia (Acute) Hypothyroid (Acute) Peripheral arterial occlusive disease (Acute) Hospital Course: (1) Peripheral arterial occlusive disease Code(s): I77.9 - DISORDER OF ARTERIES AND ARTERIOLES, UNSPECIFIED (2) HTN (hypertension) Code(s): I10 - ESSENTIAL (PRIMARY) HYPERTENSION Qualifiers: Hypertension type: essential hypertension Qualified Code(s): I10 - Essential (primary) hypertension (3) Hypothyroid Code(s): E03.9 - HYPOTHYROIDISM, UNSPECIFIED (4) BPH (benign prostatic hyperplasia) Code(s): N40.0 - BENIGN PROSTATIC HYPERPLASIA WITHOUT LOWER URINRY TRACT SYMP Qualifiers: Lower urinary tract symptom presence: symptoms absent Mr Boggs is a pleasant 76 year old male who comes in with claudication from arterial occlusive disease. Patient was admitted and seen by vascular surgery. He underwent aortagram and was found to have a thrombus, he underwent thrombectomy without difficulty. He was stared back on his anticoagulation without difficulty. He is safe for discharge home. 31 minutes spent in preparation of this discharge Condition: Good - Instructions Diet, Activity, Other Instructions: keep area clean and dry. No baths or showers. Follow-up with Dr. Morales in the wound clinic Referrals: Lam Ayala MD [Primary Care Provider] - Farhan Morales MD [Staff Physician] - Disposition: HOME - Home Medications Comprehensive Discharge Medication List: Ambulatory Orders Aspirin Chewable [Epi Children's Aspirin] 81 mg PO HS #0 tab.chew 03/02/12 Carvedilol Phosphate [Coreg Cr -] 80 mg PO DAILY #0 cap.sr.24h 03/02/12 Dabigatran Etexilate Mesylate [Pradaxa -] 150 mg PO BID #0 cap 03/02/12 Diltiazem HCl [Cardizem] 240 mg PO DAILY #0 tablet 03/02/12 Levothyroxine [Synthroid -] 100 mcg PO DAILY #0 tablet 03/02/12 Lisinopril [Zestril] 40 mg PO DAILY #0 tablet 03/02/12 Rosuvastatin [Crestor -] 20 mg PO HS #0 tablet 03/02/12 Hydralazine HCl [Apresoline -] 25 mg PO BID 02/13/17 Tamsulosin HCl 0.4 mg PO DAILY 02/13/17 Oxycodone HCl [Roxicodone -] 5 mg PO Q6H PRN #20 tablet MDD 20mg 02/17/17
[2017-02-17] MEDS ORDERED: MAGNESIUM CITRATE 300 ML BOTTLE PO ONE (12:30)
--- NOTE | 2017-02-18 12:58 | PATH ---
Surgical Pathology Report Patient Name: SHEFALI COFFMAN Med. Rec. #: [id number] /Age/Gender: 1940 (Age: 76) / M Account: [id number] Location: [address] [place] [address]/[facility] Taken: 02/14/2017 Received: 02/17/2017 Reported: 02/18/2017 Physicians: Farhan Morales Specimen(s) Received THROMBUS LEFT POPLITEAL ARTERY Clinical History Peripheral arterial occlusive disease Final Diagnosis LEFT POPLITEAL ARTERY, THROMBECTOMY: CLOTTED BLOOD. Electronically Signed Arvind Hong M.D. Gross Description Received in formalin labeled "thrombus left popliteal," is a 2.1 x 1.7 x 0.3 cm aggregate of red-brown blood clot. The specimen is entirely submitted in one cassette. 02/17/201702/17/2017
== END 2017-02-17 14:41 | disposition home or self-care (01) | DRG 253 ==
LOC: JER 12:01 → JERBED 19:56 → J5S 22:27
PROVIDERS: ADMIT Internal Medicine; ATTEND Internal Medicine
PROC: B41DYZZ Fluoroscopy of Aorta and Bilateral Lower Extremity Arteries using Other Contrast (ICD-10-PCS; 2017-02-14)
PROC: 3E05017 Introduction of Other Thrombolytic into Peripheral Artery, Open Approach (ICD-10-PCS; 2017-02-14)
PROC: 04CN0ZZ Extirpation of Matter from Left Popliteal Artery, Open Approach (ICD-10-PCS; principal; 2017-02-14 14:30)
PROC: 047N0ZZ Dilation of Left Popliteal Artery, Open Approach (ICD-10-PCS; 2017-02-14 14:30)
DX: I73.9 Peripheral vascular disease, unspecified (principal); I74.3 Embolism and thrombosis of arteries of the lower extremities; I10 Essential (primary) hypertension; E03.9 Hypothyroidism, unspecified; E78.5 Hyperlipidemia, unspecified; N40.0 Benign prostatic hyperplasia without lower urinary tract symptoms
CPT/HCPCS: 36415; 75635-TC; 76000-TC; 80048; 80053; 83735; 84100; 85025; 85610; 85730; 86850; 86900; 86901; 88304-TC; 93005; 93010; 94010; 94760; 97116-GP; 97161-GP; 99284-25; J1644

== ENCOUNTER 2018-01-06 07:58 | Day surgery (SDC) | payer OTHER ==
[2018-01-05 14:12] VITALS: BMI 23.3
[2018-01-06 10:18] VITALS: TEMP 97.9
[2018-01-06 11:28] VITALS: BP 146/68; PULSE 88
--- NOTE | 2018-01-07 13:55 | PATH ---
Surgical Pathology Report Patient Name: SHEFALI COFFMAN [facility]. Rec. #: [id number] /Age/Gender: 1940 (Age: 77) / M Account: [id number] Location: [facility]ENDOSCOPY Taken: 01/06/2018 Received: 01/06/2018 Reported: 01/07/2018 Physicians: Jeromy Brooks M.D. Specimen(s) Received BX TRANSVERSE COLON POLYP Clinical History Preoperative diagnosis: History of polyps Postoperative diagnosis: Colonic polyp, diverticulosis Final Diagnosis TRANSVERSE COLON, POLYP, BIOPSY: SESSILE SERRATED POLYP. Electronically Signed Vicki Talavera M.D. Gross Description Received in formalin, labeled "biopsy transverse colon polyp" are 3 baron, irregular portions of soft tissue ranging from 0.1-0.3 cm. in greatest dimension. The specimens are submitted in toto in one cassette. /01/06/2018 saudi01/06/2018
== END 2018-01-06 10:55 | disposition home or self-care (01) ==
LOC: JASU-ENDO 07:58
PROVIDERS: ATTEND Internal Medicine Gastroenterology
PROC: 0DBL8ZX Excision of Transverse Colon, Via Natural or Artificial Opening Endoscopic, Diagnostic (ICD-10-PCS; principal; 2018-01-06 10:15)
DX: Z12.11 Encounter for screening for malignant neoplasm of colon (principal); Z86.010 Personal history of colon polyps; D12.3 Benign neoplasm of transverse colon; K57.30 Diverticulosis of large intestine without perforation or abscess without bleeding; K64.8 Other hemorrhoids
CPT/HCPCS: 88305-TC

== ENCOUNTER 2022-06-28 14:17 | Emergency (ER) | payer OTHER ==
[2022-06-28 14:29] VITALS: RESP 18; TEMP 98.1; BMI 21.9
[2022-06-28] MEDS ORDERED: SODIUM CHLORIDE 0.9% 500 ML INFUS.BAG IV ONE ×2 (15:36→16:46)
[2022-06-28 16:16] LABS: BASO % 0.6 % (0-2.0); EOS % 0.4 % (0-4.5); HEMATOCRIT 33.9 % (35.4-49); HEMOGLOBIN 11.7 GM/dL (11.7-16.9); LYMPH % 8.5 % (8-40); MCH 31.9 pg (25.7-33.7); MCHC 34.4 g/dl (32.0-35.9); MEAN CELL VOLUME 92.7 fl (80-96); MEAN PLT VOLUME 7.9 fl (7.5-11.1); MONO % 10.7 % (3.8-10.2); NEUT % 79.8 % (42.8-82.8); PLATELET COUNT 176 10^3/uL (134-434); RBC 3.66 M/mm3 (4.00-5.60); RDW 15.1 % (11.9-15.9)
[2022-06-28 16:17] LABS: URINE APPEARANCE TURBID; URINE BILIRUBIN 3+ (NEGATIVE); URINE COLOR RED; URINE GLUCOSE (UA) NEGATIVE (NEGATIVE); URINE KETONE Error (NEGATIVE); URINE LEUK ESTERASE 3+ (NEGATIVE); URINE NITRITE POSITIVE (NEGATIVE); URINE PROTEIN 2+ (NEGATIVE); URINE UROBILINOGEN 0.2 mg/dL (0.2-1.0)
[2022-06-28 16:24] LABS: INR 1.69 (0.83-1.09); PROTHROMBIN TIME (PATIENT) 19.5 SEC (9.7-13.0)
[2022-06-28 16:41] LABS: CALCIUM 8.3 mg/dL (8.5-10.1)
[2022-06-28 16:42] LABS: ALBUMIN 3.2 g/dl (3.4-5.0); BLOOD UREA NITROGEN 20.3 mg/dL (7-18)
[2022-06-28] MEDS ORDERED: LACTATED RINGERS SOLUTION 1000 ML INFUS.BAG IV ONE (16:44)
[2022-06-28 16:45] LABS: CREATININE 0.9 mg/dL (0.55-1.3)
[2022-06-28 16:46] LABS: BILIRUBIN,TOTAL 2.3 mg/dL (0.2-1)
[2022-06-28 17:14] VITALS: BP 161/81; PULSE 74
[2022-06-28 20:23] LABS: EPI CELLS 759.8 /uL (0-25.1); PH,URINE > 8.5 (5.0-8.0); URINE RBC 5302.9 /uL (0-23.9); URINE WBC 198 /uL (0-25.8)
[2022-06-28 20:24] LABS: HYALINE CASTS 191.59 /uL (0-3.1); URINE BACTERIA 0 /uL (0-1359)
== END 2022-06-28 17:54 | disposition home or self-care (01) ==
LOC: JER 14:17
DX: N40.1 Benign prostatic hyperplasia with lower urinary tract symptoms (principal); R31.9 Hematuria, unspecified
CPT/HCPCS: 36415; 80053; 81003; 85025; 85610; 87086; 99284-25

== ENCOUNTER 2023-05-13 05:12 | Day surgery (SDC) | payer OTHER ==
[2023-05-08 07:50] VITALS: BMI 20.9
[2023-05-13] MEDS ORDERED: BUPIVACAINE HCL/PF 0.25% (2.5MG/ML) 10 ML VIAL ONE (10:11)
[2023-05-13] MEDS ORDERED: ceFAZolin SODIUM 1 GM VIAL ONE (10:26)
[2023-05-13] MEDS ORDERED: ONDANSETRON 4 MG/2 ML VIAL ONE (10:26)
[2023-05-13] MEDS ORDERED: GLYCOPYRROLATE 0.2 MG/1 ML VIAL ONE (10:26)
[2023-05-13] MEDS ORDERED: DEXAMETHASONE SOD PHOSPHATE 4 MG/1 ML VIAL ONE (10:26)
[2023-05-13] MEDS ORDERED: KETOROLAC TROMETHAMINE 30 MG/1 ML VIAL ONE (10:26)
[2023-05-13] MEDS ORDERED: ROCURONIUM BROMIDE 50 MG/5 ML SYRINGE ONE (10:27)
[2023-05-13] MEDS ORDERED: NEOSTIGMINE METHYLSULFATE 0.5 MG/1 ML - 10 ML MDV ONE (10:27)
[2023-05-13] MEDS ORDERED: ceFAZolin SODIUM 1 GM VIAL IVPB ONE (10:58)
[2023-05-13] MEDS ORDERED: HEPARIN NA (PORCINE) 5,000 UNITS/ML 1ML VIAL ONE (11:03)
[2023-05-13] MEDS ORDERED: oxyCODONE HCL 5 MG TABLET PO PRN (13:03)
[2023-05-13] MEDS ORDERED: ONDANSETRON 4 MG/2 ML VIAL IVPUSH PRN (13:03)
[2023-05-13] MEDS ORDERED: LACTATED RINGERS SOLUTION 1,000 ML IV SCH (13:15)
[2023-05-13] MEDS ORDERED: LABETALOL HCL 5 MG/1 ML (100MG/20 ML VIAL) IVPUSH ONE ×2 (14:45→16:15)
[2023-05-13] MEDS ORDERED: hydrALAZINE HCL 20 MG/ML VIAL IVPUSH ONE (16:15)
[2023-05-13 18:35] VITALS: RESP 18
[2023-05-13 19:30] VITALS: BP 172/85; PULSE 84; TEMP 97.4
== END 2023-05-13 19:00 | disposition home or self-care (01) ==
LOC: JASU-SURG 05:12
PROVIDERS: ATTEND Surgery
PROC: 0WUF4JZ Supplement Abdominal Wall with Synthetic Substitute, Percutaneous Endoscopic Approach (ICD-10-PCS; principal; 2023-05-13 09:30)
DX: K42.9 Umbilical hernia without obstruction or gangrene (principal)
CPT/HCPCS: 94760; C1781; J1644

== ENCOUNTER 2023-07-04 18:03 | Inpatient (IN) | payer OTHER ==
[2023-07-04] MEDS ORDERED: ACETAMINOPHEN 325 MG TABLET (FP) PO ONE (18:10)
[2023-07-04] MEDS ORDERED: ACETAMINOPHEN 500 MG TABLET (FP) ONE (19:03)
[2023-07-04 19:06] LABS: HEMATOCRIT 28.5 % (35.4-49); HEMOGLOBIN 9.3 G/dL (11.7-16.9); MCH 29.9 pg (25.7-33.7); MCHC 32.6 g/dl (32.0-35.9); MEAN CELL VOLUME 91.6 fl (80-96); MEAN PLT VOLUME 7.7 fl (7.5-11.1); PLATELET COUNT 196.6 10^3/uL (134-434); RBC 3.11 10^6/uL (4.00-5.60); RDW 16.4 % (11.9-15.9); WHITE BLOOD COUNT 8.3 10^3/uL (4.0-10.8)
[2023-07-04 19:07] LABS: INR 1.42 (0.83-1.09); PROTHROMBIN TIME (PATIENT) 16.4 SEC (9.7-13.0)
[2023-07-04 19:19] LABS: BLOOD UREA NITROGEN 22.4 mg/dl (7-18); CALCIUM 7.6 mg/dl (8.5-10.1); CREATININE 0.9 mg/dl (0.6-1.3); POTASSIUM 4.1 mmol/L (3.5-5.1); SGOT/AST 20.7 U/L (15-37); SGPT/ALT 9.7 U/L (7-52); TOT PROT 5.8 g/dl (6.4-8.2)
[2023-07-04 19:47] LABS: PLATELET ESTIMATE ADEQUATE
[2023-07-04] MEDS ORDERED: CEFTRIAXONE 1,000 MG in DEXTROSE 5%-WATER - 50 ML IVPB ONE (20:03)
[2023-07-04] MEDS ORDERED: cefTRIAXone SODIUM 1 GM VIAL ONE (20:06)
[2023-07-04 21:02] LABS: VENOUS BASE EXCESS 0.6 mmol/L (-2-2); VENOUS O2 SATURATION 72.2 % (70-80); VENOUS PCO2 37.3 mmHg (38-52); VENOUS PH 7.439 (7.310-7.410)
[2023-07-04 21:18] LABS: BILIRUBIN,TOTAL 1.4 mg/dL (0.2-1)
[2023-07-04] MEDS ORDERED: DOCUSATE SODIUM 100 MG CAPSULE (FP) PO PRN (21:36)
[2023-07-04] MEDS ORDERED: SODIUM CHLORIDE 1,000 ML IV SCH (21:45)
[2023-07-04 22:45] VITALS: BMI 22.1
[2023-07-05] MEDS: LEVOTHYROXINE NA 100 MCG TABLET (FP) PO SCH (06:38)
[2023-07-05 08:39] LABS: BLOOD UREA NITROGEN 17.2 mg/dl (7-18); CALCIUM 7.5 mg/dl (8.5-10.1); CREATININE 0.7 mg/dl (0.6-1.3); MAGNESIUM 1.8 mg/dL (1.8-2.4); PHOSPHOROUS 3.03 (2.5-4.9); POTASSIUM 3.9 mmol/L (3.5-5.1)
[2023-07-05 10:21] LABS: BASO % 0.7 % (0-2.0); EOS % 0.6 % (0-4.5); HEMATOCRIT 26.7 % (35.4-49); HEMOGLOBIN 9.1 GM/dL (11.7-16.9); LYMPH % 7.8 % (8-40); MCH 29.9 pg (25.7-33.7); MCHC 34.1 g/dl (32.0-35.9); MEAN CELL VOLUME 87.5 fl (80-96); MEAN PLT VOLUME 7.4 fl (7.5-11.1); MONO % 9.2 % (3.8-10.2); NEUT % 81.7 % (42.8-82.8); PLATELET COUNT 217 10^3/uL (134-434); RBC 3.05 M/mm3 (4.00-5.60); RDW 14.9 % (11.9-15.9)
[2023-07-05] MEDS ORDERED: VANCOMYCIN 1,000 MG in DEXTROSE 5%-WATER - 250 ML IVPB ONE (10:24)
[2023-07-05] MEDS ORDERED: PIPERACILLIN/TAZOB 3.375 GM 3.375 GM in DEXTROSE 5%-WATER - 50 ML IVPB SCH ×2 (10:30→11:31)
[2023-07-05] MEDS ORDERED: SODIUM CHLORIDE 0.9% 500 ML INFUS.BAG IV ONE (10:39)
[2023-07-05] MEDS: LISINOPRIL 20 MG TABLET PO SCH (11:25)
[2023-07-05] MEDS: DABIGATRAN ETEXILATE MESYLATE 150 MG CAPSULE PO SCH ×2 (11:26→21:33)
[2023-07-05] MEDS: hydrALAZINE HCL 25 MG TABLET (FP) PO SCH ×2 (11:26→21:32)
[2023-07-05] MEDS: SENNOSIDES 8.6MG TABLET (FP) PO SCH ×2 (16:34→21:33)
[2023-07-05] MEDS: FINASTERIDE 5 MG TABLET (FP) PO SCH ×2 (16:34→16:45)
[2023-07-05] MEDS: FUROSEMIDE 40 MG/4 ML INJECTABLE VIAL IVPUSH SCH (16:34)
[2023-07-05] MEDS: POLYETHYLENE GLYCOL (HEALTHYLAX) 3350 17 GM PACKET PO SCH ×2 (16:35→21:33)
[2023-07-05] MEDS: TAMSULOSIN HCL 0.4 MG CAP PO SCH (16:48)
[2023-07-05] MEDS: ROSUVASTATIN CA 20 MG TABLET PO SCH (21:32)
[2023-07-05] MEDS: CEFTRIAXONE 1 GM in DEXTROSE 5%-WATER - 50 ML IVPB SCH (21:32)
[2023-07-05] MEDS: ACETAMINOPHEN 325 MG TABLET (FP) PO PRN (21:33)
[2023-07-05] MEDS ORDERED: VANCOMYCIN 1,000 MG in DEXTROSE 5%-WATER - 250 ML IVPB SCH (23:00)
[2023-07-06] MEDS: LEVOTHYROXINE NA 100 MCG TABLET (FP) PO SCH (07:04)
[2023-07-06] MEDS: TAMSULOSIN HCL 0.4 MG CAP PO SCH (09:35)
[2023-07-06] MEDS: CEFTRIAXONE 1 GM in DEXTROSE 5%-WATER - 50 ML IVPB SCH (09:35)
[2023-07-06] MEDS: FINASTERIDE 5 MG TABLET (FP) PO SCH (09:35)
[2023-07-06] MEDS: POLYETHYLENE GLYCOL (HEALTHYLAX) 3350 17 GM PACKET PO SCH ×2 (09:35→23:05)
[2023-07-06] MEDS: hydrALAZINE HCL 25 MG TABLET (FP) PO SCH ×2 (09:35→23:03)
[2023-07-06] MEDS: LISINOPRIL 20 MG TABLET PO SCH (09:35)
[2023-07-06] MEDS: DABIGATRAN ETEXILATE MESYLATE 150 MG CAPSULE PO SCH ×2 (09:35→23:23)
[2023-07-06] MEDS: SENNOSIDES 8.6MG TABLET (FP) PO SCH ×2 (09:35→23:04)
[2023-07-06] MEDS: FUROSEMIDE 40 MG/4 ML INJECTABLE VIAL IVPUSH SCH (09:36)
[2023-07-06 10:04] LABS: ALBUMIN 2.6 g/dl (3.4-5.0); BLOOD UREA NITROGEN 12.6 mg/dl (7-18); CALCIUM 7.5 mg/dl (8.5-10.1); CREATININE 0.7 mg/dl (0.6-1.3); POTASSIUM 3.9 mmol/L (3.5-5.1); SGOT/AST 16.9 U/L (15-37); TOT PROT 5.3 g/dl (6.4-8.2)
[2023-07-06 11:24] LABS: BASO % 0.7 % (0-2.0); EOS % 1.3 % (0-4.5); HEMOGLOBIN 9.3 GM/dL (11.7-16.9); LYMPH % 8.8 % (8-40); MCH 29.6 pg (25.7-33.7); MCHC 33.2 g/dl (32.0-35.9); MEAN PLT VOLUME 7.5 fl (7.5-11.1); MONO % 7.1 % (3.8-10.2); NEUT % 82.1 % (42.8-82.8); PLATELET COUNT 247 10^3/uL (134-434); RBC 3.14 M/mm3 (4.00-5.60); RDW 14.8 % (11.9-15.9); WHITE BLOOD COUNT 7.9 K/mm3 (4.0-10.0)
[2023-07-06] MEDS: VANCOMYCIN/WATER FOR INJ (PEG) 1,000 MG/200 ML BAG IVPB SCH ×2 (11:42→23:04)
[2023-07-06 11:46] LABS: BILIRUBIN,TOTAL 1.5 mg/dL (0.2-1)
[2023-07-06] MEDS: ACETAMINOPHEN 325 MG TABLET (FP) PO PRN (23:03)
[2023-07-06] MEDS: ROSUVASTATIN CA 20 MG TABLET PO SCH (23:04)
[2023-07-07] MEDS: LEVOTHYROXINE NA 100 MCG TABLET (FP) PO SCH (06:15)
[2023-07-07] MEDS: TAMSULOSIN HCL 0.4 MG CAP PO SCH (08:00)
[2023-07-07 08:27] LABS: BASO % 0.7 % (0-2.0); EOS % 1.6 % (0-4.5); HEMATOCRIT 29.1 % (35.4-49); HEMOGLOBIN 9.9 GM/dL (11.7-16.9); MCH 29.2 pg (25.7-33.7); MCHC 33.9 g/dl (32.0-35.9); MEAN CELL VOLUME 86.1 fl (80-96); MEAN PLT VOLUME 7.4 fl (7.5-11.1); MONO % 9.5 % (3.8-10.2); NEUT % 77.2 % (42.8-82.8); PLATELET COUNT 257 10^3/uL (134-434); RBC 3.38 M/mm3 (4.00-5.60); RDW 15.2 % (11.9-15.9)
[2023-07-07] MEDS: CEFTRIAXONE 1 GM in DEXTROSE 5%-WATER - 50 ML IVPB SCH (09:40)
[2023-07-07] MEDS: FUROSEMIDE 40 MG/4 ML INJECTABLE VIAL IVPUSH SCH (09:40)
[2023-07-07] MEDS: POLYETHYLENE GLYCOL (HEALTHYLAX) 3350 17 GM PACKET PO SCH ×2 (09:40→23:33)
[2023-07-07] MEDS: FINASTERIDE 5 MG TABLET (FP) PO SCH (09:41)
[2023-07-07] MEDS: SENNOSIDES 8.6MG TABLET (FP) PO SCH ×2 (09:41→23:34)
[2023-07-07] MEDS: LISINOPRIL 20 MG TABLET PO SCH (09:41)
[2023-07-07] MEDS: hydrALAZINE HCL 25 MG TABLET (FP) PO SCH ×2 (09:41→23:34)
[2023-07-07] MEDS ORDERED: CEFTRIAXONE 1 GM in DEXTROSE 5%-WATER - 50 ML IVPB ONE (10:22)
[2023-07-07] MEDS: DABIGATRAN ETEXILATE MESYLATE 150 MG CAPSULE PO SCH ×2 (11:24→23:33)
[2023-07-07 11:27] LABS: ALBUMIN 2.1 g/dl (3.4-5.0); BILIRUBIN,TOTAL 1.3 mg/dL (0.2-1); BLOOD UREA NITROGEN 11.3 mg/dL (7-18); CALCIUM 7.2 mg/dL (8.5-10.1); CREATININE 0.6 mg/dL (0.55-1.3); POTASSIUM 3.7 mmol/L (3.5-5.1); TOT PROT 5.3 g/dl (6.4-8.2)
[2023-07-07] MEDS: VANCOMYCIN/WATER FOR INJ (PEG) 1,000 MG/200 ML BAG IVPB SCH (12:00)
[2023-07-07] MEDS: AMPICILLIN - 2 GM in SODIUM CHLORIDE 100 ML IVPB SCH ×3 (14:40→21:50)
[2023-07-07] MEDS: ROSUVASTATIN CA 20 MG TABLET PO SCH (23:33)
[2023-07-08] MEDS: AMPICILLIN - 2 GM in SODIUM CHLORIDE 100 ML IVPB SCH ×6 (02:38→21:51)
[2023-07-08] MEDS: LEVOTHYROXINE NA 100 MCG TABLET (FP) PO SCH (06:16)
[2023-07-08 07:49] LABS: HEMOGLOBIN 10.4 GM/dL (11.7-16.9); MCH 30.8 pg (25.7-33.7); MCHC 35.7 g/dl (32.0-35.9); MEAN CELL VOLUME 86.3 fl (80-96); MEAN PLT VOLUME 7.2 fl (7.5-11.1); PLATELET COUNT 267 10^3/uL (134-434); RBC 3.36 M/mm3 (4.00-5.60); RDW 14.9 % (11.9-15.9); WHITE BLOOD COUNT 6.3 K/mm3 (4.0-10.0)
[2023-07-08] MEDS: TAMSULOSIN HCL 0.4 MG CAP PO SCH (08:00)
[2023-07-08 08:12] LABS: POTASSIUM 3.6 mmol/L (3.5-5.1)
[2023-07-08 08:20] LABS: CALCIUM 7.3 mg/dL (8.5-10.1)
[2023-07-08 08:21] LABS: ALBUMIN 2.2 g/dl (3.4-5.0); BLOOD UREA NITROGEN 10.4 mg/dL (7-18)
[2023-07-08 08:24] LABS: CREATININE 0.6 mg/dL (0.55-1.3)
[2023-07-08 08:25] LABS: BILIRUBIN,TOTAL 1.2 mg/dL (0.2-1); TOT PROT 5.6 g/dl (6.4-8.2)
[2023-07-08] MEDS: POLYETHYLENE GLYCOL (HEALTHYLAX) 3350 17 GM PACKET PO SCH ×2 (09:06→21:53)
[2023-07-08] MEDS: SENNOSIDES 8.6MG TABLET (FP) PO SCH ×2 (09:06→21:54)
[2023-07-08] MEDS: hydrALAZINE HCL 25 MG TABLET (FP) PO SCH ×2 (09:06→21:52)
[2023-07-08] MEDS: LISINOPRIL 20 MG TABLET PO SCH (09:06)
[2023-07-08] MEDS: FINASTERIDE 5 MG TABLET (FP) PO SCH (09:06)
[2023-07-08] MEDS: DABIGATRAN ETEXILATE MESYLATE 150 MG CAPSULE PO SCH ×2 (09:17→21:53)
[2023-07-08] MEDS: CARVEDILOL PHOSPHATE CR 40 MG CAPSULE (FP) PO SCH ×2 (09:17→09:50)
[2023-07-08] MEDS: CEFTRIAXONE 2 GM in DEXTROSE 5%-WATER 100 ML IVPB SCH (09:19)
[2023-07-08 21:07] VITALS: RESP 18
[2023-07-08] MEDS: ROSUVASTATIN CA 20 MG TABLET PO SCH (21:53)
[2023-07-09] MEDS: AMPICILLIN - 2 GM in SODIUM CHLORIDE 100 ML IVPB SCH ×3 (03:00→10:00)
[2023-07-09] MEDS: LEVOTHYROXINE NA 100 MCG TABLET (FP) PO SCH (06:17)
[2023-07-09] MEDS: TAMSULOSIN HCL 0.4 MG CAP PO SCH (08:10)
[2023-07-09 08:31] LABS: HEMATOCRIT 30.8 % (35.4-49); HEMOGLOBIN 10.3 GM/dL (11.7-16.9); MCH 29.5 pg (25.7-33.7); MCHC 33.6 g/dl (32.0-35.9); MEAN CELL VOLUME 87.7 fl (80-96); MEAN PLT VOLUME 7.2 fl (7.5-11.1); PLATELET COUNT 310 10^3/uL (134-434); RBC 3.51 M/mm3 (4.00-5.60); RDW 15.1 % (11.9-15.9)
[2023-07-09 08:53] LABS: POTASSIUM 3.6 mmol/L (3.5-5.1)
[2023-07-09 09:01] LABS: BLOOD UREA NITROGEN 10.4 mg/dL (7-18)
[2023-07-09 09:03] LABS: CALCIUM 7.6 mg/dL (8.5-10.1)
[2023-07-09 09:04] LABS: ALBUMIN 2.3 g/dl (3.4-5.0)
[2023-07-09 09:06] LABS: CREATININE 0.7 mg/dL (0.55-1.3)
[2023-07-09 09:08] LABS: BILIRUBIN,TOTAL 0.8 mg/dL (0.2-1); TOT PROT 5.7 g/dl (6.4-8.2)
[2023-07-09] MEDS: SENNOSIDES 8.6MG TABLET (FP) PO SCH (09:57)
[2023-07-09] MEDS: FINASTERIDE 5 MG TABLET (FP) PO SCH (09:58)
[2023-07-09] MEDS: LISINOPRIL 20 MG TABLET PO SCH (09:58)
[2023-07-09] MEDS: hydrALAZINE HCL 25 MG TABLET (FP) PO SCH (09:58)
[2023-07-09] MEDS: CARVEDILOL PHOSPHATE CR 40 MG CAPSULE (FP) PO SCH (09:59)
[2023-07-09] MEDS: DABIGATRAN ETEXILATE MESYLATE 150 MG CAPSULE PO SCH (09:59)
[2023-07-09] MEDS ORDERED: LACTOBACILLUS ACIDOPHILUS 1 TABLET PO SCH (10:00)
[2023-07-09] MEDS: POLYETHYLENE GLYCOL (HEALTHYLAX) 3350 17 GM PACKET PO SCH (10:00)
[2023-07-09] MEDS: CEFTRIAXONE 2 GM in DEXTROSE 5%-WATER 100 ML IVPB SCH (10:00)
[2023-07-09 10:42] VITALS: BP 141/93; PULSE 95; TEMP 97.8
[2023-07-10] MEDS ORDERED: LISINOPRIL 20 MG TABLET PO SCH (22:00)
== END 2023-07-09 13:39 | disposition short-term general hospital (02) | DRG 280 ==
LOC: FER 18:03 → FM/S 21:32 → J4W 07-06 21:47 → OBSVTOIN 07-07 09:34
PROVIDERS: ADMIT Internal Medicine; ATTEND Internal Medicine
DX: I33.0 Acute and subacute infective endocarditis (principal); I21.A1 Myocardial infarction type 2; G93.41 Metabolic encephalopathy; I24.9 Acute ischemic heart disease, unspecified; N39.0 Urinary tract infection, site not specified; R78.81 Bacteremia; I31.39 Other pericardial effusion (noninflammatory); E03.9 Hypothyroidism, unspecified; I70.218 Atherosclerosis of native arteries of extremities with intermittent claudication, other extremity; I10 Essential (primary) hypertension; D64.9 Anemia, unspecified; E78.5 Hyperlipidemia, unspecified; I25.10 Atherosclerotic heart disease of native coronary artery without angina pectoris; N40.0 Benign prostatic hyperplasia without lower urinary tract symptoms; Z95.5 Presence of coronary angioplasty implant and graft
CPT/HCPCS: 0241U-QW; 36415; 70450-TC; 71046-TC-FY; 72129-TC; 72132-TC; 74177-TC; 80048; 80053; 81003; 81015; 82728; 82803; 83540; 83550; 83605; 83615; 83735; 83880; 84100; 84439; 84443; 84484; 85025; 85027; 85045; 85610; 85730; 87040; 87086; 87186; 87635; 93005; 93306-TC; 93880-TC; 97116-GP; 97161-GP; 99285-25; G0378; G0480; Q9967

== ENCOUNTER 2025-01-07 13:50 | Inpatient (IN) | payer OTHER ==
[2025-01-07 13:59] VITALS: BMI 20.9
[2025-01-07 15:11] LABS: ABSOLUTE IMMATURE GRANULOCYTES 0.02 x10^3/uL (0.0-0.031); BASOPHILS # 0.02 x10^3/uL (0.01-0.08); EOSINOPHIL % 0.8 % (0.8-7.0); EOSINOPHILS # 0.05 x10^3/uL (0.04-0.54); HEMATOCRIT 19.7 % (40.1-51.0); MCHC 30.5 g/dl (32.3-36.5); MEAN CELL VOLUME 87.6 fl (79.0-92.2); MEAN PLT VOLUME 9.2 fl (9.4-12.4); MONOCYTE # 0.67 x10^3/uL (0.30-0.82); MONOCYTE % 10.3 % (5.3-12.2); PLATELET COUNT # 240 x10^3/uL (163-337); RDW 15.4 % (12.6-16.6)
[2025-01-07 15:17] LABS: INR 1.49 (0.83-1.09); PROTHROMBIN TIME (PATIENT) 16.2 SEC (9.7-13.0)
[2025-01-07 15:20] LABS: ACTIVATED PTT 47.6 SECONDS (25.2-36.5)
[2025-01-07 15:33] LABS: POTASSIUM 4.4 mmol/L (3.5-5.1)
[2025-01-07 15:36] LABS: BLOOD UREA NITROGEN 34.6 mg/dL (7-18); CALCIUM 8.5 mg/dL (8.5-10.1)
[2025-01-07 15:40] LABS: CREATININE 1.2 mg/dL (0.55-1.3)
[2025-01-07 15:42] LABS: BILIRUBIN,TOTAL 4.3 mg/dL (0.2-1)
[2025-01-07 16:29] LABS: HCV DIAGNOSTIC IN-HOUSE W/RFLX NON-REACTIVE (NONREACTIVE); HIV INTERPRETATION NEGATIVE (NEGATIVE)
[2025-01-07] MEDS ORDERED: CARVEDILOL 6.25 MG TABLET (FP) ONE (18:27)
[2025-01-07] MEDS: CARVEDILOL 12.5 MG TABLET (FP) PO ONE (18:30)
[2025-01-07 20:00] LABS: Reticulocyte % 3.09 % (0.51-1.81)
[2025-01-07 21:18] LABS: BILIRUBIN,DIRECT 0.4 mg/dL (0.0-0.2)
[2025-01-07] MEDS ORDERED: hydrALAZINE HCL 25 MG TABLET (FP) PO SCH (22:00)
[2025-01-07] MEDS: ROSUVASTATIN CA 20 MG TABLET PO SCH (22:50)
[2025-01-07] MEDS: CARVEDILOL 12.5 MG TABLET (FP) PO SCH (22:51)
[2025-01-08 00:31] LABS: HEMATOCRIT 24.6 % (40.1-51.0); HEMOGLOBIN 7.7 g/dL (13.7-17.5); MCHC 31.3 g/dl (32.3-36.5); MEAN CELL VOLUME 85.4 fl (79.0-92.2); MEAN PLT VOLUME 9.4 fl (9.4-12.4); PLATELET COUNT # 225 x10^3/uL (163-337); RDW 15.9 % (12.6-16.6)
[2025-01-08] MEDS: SODIUM CHLORIDE 1,000 ML IV SCH (01:58)
[2025-01-08] MEDS: LEVOTHYROXINE NA 100 MCG TABLET (FP) PO SCH (06:33)
[2025-01-08] MEDS: FUROSEMIDE 40 MG/4 ML INJECTABLE VIAL IVPUSH ONE (06:33)
[2025-01-08 07:28] LABS: ABSOLUTE IMMATURE GRANULOCYTES 0.03 x10^3/uL (0.0-0.031); BASOPHILS # 0.04 x10^3/uL (0.01-0.08); EOSINOPHIL % 0.4 % (0.8-7.0); EOSINOPHILS # 0.03 x10^3/uL (0.04-0.54); HEMATOCRIT 23.6 % (40.1-51.0); HEMOGLOBIN 7.2 g/dL (13.7-17.5); MCHC 30.5 g/dl (32.3-36.5); MEAN CELL VOLUME 85.2 fl (79.0-92.2); MONOCYTE # 0.75 x10^3/uL (0.30-0.82); MONOCYTE % 9.6 % (5.3-12.2); PLATELET COUNT # 226 x10^3/uL (163-337); RDW 16.3 % (12.6-16.6)
[2025-01-08 07:41] LABS: POTASSIUM 3.7 mmol/L (3.5-5.1)
[2025-01-08 07:42] LABS: CALCIUM 7.8 mg/dL (8.5-10.1)
[2025-01-08 07:43] LABS: BLOOD UREA NITROGEN 35.3 mg/dL (7-18); MAGNESIUM 1.8 mg/dL (1.8-2.4)
[2025-01-08 07:46] LABS: CREATININE 1.1 mg/dL (0.55-1.3)
[2025-01-08] MEDS ORDERED: LISINOPRIL 20 MG TABLET PO SCH (10:00)
[2025-01-08 12:36] LABS: EPI CELLS 13 /uL (0-25.1); HYALINE CASTS 0 /uL (0-3.1); URINE APPEARANCE CLEAR; URINE BACTERIA 1 /uL (0-1359); URINE BILIRUBIN NEGATIVE (NEGATIVE); URINE COLOR YELLOW; URINE GLUCOSE (UA) NEGATIVE (NEGATIVE); URINE KETONE NEGATIVE (NEGATIVE); URINE LEUK ESTERASE TRACE (NEGATIVE); URINE NITRITE NEGATIVE (NEGATIVE); URINE PROTEIN NEGATIVE (NEGATIVE); URINE RBC 33 /uL (0-23.9); URINE UROBILINOGEN 0.2 mg/dL (0.2-1.0)
[2025-01-08] MEDS: POLYETHYLENE GLYCOL (HEALTHYLAX) 3350 17 GM PACKET PO SCH (14:46)
[2025-01-08] MEDS: IRON SUCROSE INJECTION 200 MG in SODIUM CHLORIDE 100 ML IVPB ONE (16:28)
[2025-01-08] MEDS: LISINOPRIL 20 MG TABLET PO ONE (19:58)
[2025-01-08] MEDS: DABIGATRAN ETEXILATE MESYLATE 150 MG CAPSULE PO SCH (21:38)
[2025-01-08] MEDS: MELATONIN 5 MG TABLETS PO ONE (23:34)
[2025-01-09 07:29] LABS: POTASSIUM 3.3 mmol/L (3.5-5.1)
[2025-01-09 07:36] LABS: ALBUMIN 2.5 g/dl (3.4-5.0)
[2025-01-09 07:37] LABS: BILIRUBIN,TOTAL 5.2 mg/dL (0.2-1); TOT PROT 5.1 g/dl (6.4-8.2)
[2025-01-09 07:39] LABS: BILIRUBIN,DIRECT 0.7 mg/dL (0.0-0.2); CALCIUM 7.9 mg/dL (8.5-10.1)
[2025-01-09 07:51] LABS: ABSOLUTE IMMATURE GRANULOCYTES 0.05 x10^3/uL (0.0-0.031); BASOPHILS # 0.02 x10^3/uL (0.01-0.08); EOSINOPHILS # 0.09 x10^3/uL (0.04-0.54); HEMATOCRIT 27.5 % (40.1-51.0); HEMOGLOBIN 8.6 g/dL (13.7-17.5); MCHC 31.3 g/dl (32.3-36.5); MEAN CELL VOLUME 85.1 fl (79.0-92.2); MEAN PLT VOLUME 10.1 fl (9.4-12.4); MONOCYTE # 0.85 x10^3/uL (0.30-0.82); MONOCYTE % 9.6 % (5.3-12.2); PLATELET COUNT # 242 x10^3/uL (163-337); RDW 15.9 % (12.6-16.6)
[2025-01-09] MEDS ORDERED: hydrALAZINE HCL 25 MG TABLET (FP) PO SCH (08:00)
[2025-01-09] MEDS: LISINOPRIL 20 MG TABLET PO SCH (09:39)
[2025-01-09] MEDS ORDERED: POTASSIUM CHLORIDE ORAL LIQUID 20 MEQ/15 ML PO SCH (10:45)
[2025-01-09] MEDS: POTASSIUM CHLORIDE ORAL LIQUID 20 MEQ/15 ML PO SCH (11:43)
[2025-01-09] MEDS: PEG 3350/NA SULF BICARB CL/KCL 4000 ML SOLN.RECON PO ONE (12:20)
[2025-01-09] MEDS: KCL 10 MEQ IVPB 10 MEQ/100 ML INFUS.BAG IVPB SCH (16:10)
[2025-01-09] MEDS: BISACODYL 5 MG TABLET.DR (FP) PO ONE (17:17)
[2025-01-09 20:02] LABS: HCV DIAGNOSTIC IN-HOUSE W/RFLX NON-REACTIVE (NONREACTIVE)
[2025-01-09] MEDS: hydrALAZINE HCL 50 MG TABLET (FP) PO ONE (22:51)
[2025-01-10] MEDS: MELATONIN 5 MG TABLETS PO ONE (03:36)
[2025-01-10] MEDS: hydrALAZINE HCL 20 MG/ML VIAL IVPUSH ONE (06:34)
[2025-01-10 06:53] LABS: ABSOLUTE IMMATURE GRANULOCYTES 0.03 x10^3/uL (0.0-0.031); BASOPHILS # 0.03 x10^3/uL (0.01-0.08); EOSINOPHIL % 2.5 % (0.8-7.0); HEMATOCRIT 27.4 % (40.1-51.0); HEMOGLOBIN 8.7 g/dL (13.7-17.5); MCHC 31.8 g/dl (32.3-36.5); MEAN CELL VOLUME 84.8 fl (79.0-92.2); MEAN PLT VOLUME 9.4 fl (9.4-12.4); MONOCYTE % 9.9 % (5.3-12.2); PLATELET COUNT # 246 x10^3/uL (163-337); RDW 15.9 % (12.6-16.6)
[2025-01-10 07:26] LABS: POTASSIUM 3.5 mmol/L (3.5-5.1)
[2025-01-10 07:37] LABS: BLOOD UREA NITROGEN 24.8 mg/dL (7-18); CALCIUM 7.8 mg/dL (8.5-10.1)
[2025-01-10 07:38] LABS: MAGNESIUM 1.9 mg/dL (1.8-2.4)
[2025-01-10 07:40] LABS: CREATININE 0.8 mg/dL (0.55-1.3)
[2025-01-10] MEDS: FUROSEMIDE 20 MG TABLET (FP) PO SCH (13:16)
[2025-01-10] MEDS ORDERED: TAMSULOSIN HCL 0.4 MG CAP PO ONE (15:15)
[2025-01-10] MEDS: TAMSULOSIN HCL 0.4 MG CAP PO ONE (17:36)
[2025-01-10] MEDS: FINASTERIDE 5 MG TABLET (FP) PO SCH (17:36)
[2025-01-10 19:06] LABS: GLIADIN ANTIBODY IGA 2 units (0-19); GLIADIN ANTIBODY IGG 4 units (0-19); TRANSGLUTAMINASE IGG 5 U/mL (0-5)
[2025-01-10] MEDS: DABIGATRAN ETEXILATE MESYLATE 150 MG CAPSULE PO SCH (22:27)
[2025-01-10 23:07] LABS: CARCINOEMBRYONIC ANTIGEN 1.4 ng/mL (0.0-4.7)
[2025-01-11] MEDS: TAMSULOSIN HCL 0.4 MG CAP PO SCH (07:44)
[2025-01-11 07:54] LABS: ABSOLUTE IMMATURE GRANULOCYTES 0.03 x10^3/uL (0.0-0.031); BASOPHILS # 0.03 x10^3/uL (0.01-0.08); EOSINOPHIL % 3.2 % (0.8-7.0); EOSINOPHILS # 0.24 x10^3/uL (0.04-0.54); HEMATOCRIT 26.3 % (40.1-51.0); HEMOGLOBIN 8.1 g/dL (13.7-17.5); MCHC 30.8 g/dl (32.3-36.5); MEAN CELL VOLUME 86.2 fl (79.0-92.2); MEAN PLT VOLUME 9.9 fl (9.4-12.4); MONOCYTE # 0.64 x10^3/uL (0.30-0.82); MONOCYTE % 8.5 % (5.3-12.2); PLATELET COUNT # 236 x10^3/uL (163-337); RDW 16.7 % (12.6-16.6)
[2025-01-11 08:14] LABS: POTASSIUM 3.9 mmol/L (3.5-5.1)
[2025-01-11 08:24] LABS: ALBUMIN 2.4 g/dl (3.4-5.0); BLOOD UREA NITROGEN 26.1 mg/dL (7-18); CALCIUM 7.6 mg/dL (8.5-10.1)
[2025-01-11 08:27] LABS: CREATININE 0.9 mg/dL (0.55-1.3)
[2025-01-11 08:28] LABS: BILIRUBIN,TOTAL 4.4 mg/dL (0.2-1)
[2025-01-11 10:29] VITALS: BP 148/64; PULSE 73; RESP 18; TEMP 97.7
[2025-01-11] MEDS: RIVAROXABAN 20 MG TABLET PO SCH (17:27)
== END 2025-01-11 18:33 | disposition home or self-care (01) | DRG 812 ==
LOC: JER 13:50 → JERBED 17:56 → OBSVTOIN 19:45 → J7W 20:14 → J4W 22:01
PROVIDERS: ADMIT Hospitalist; ATTEND Internal Medicine
PROC: 30233N1 Transfusion of Nonautologous Red Blood Cells into Peripheral Vein, Percutaneous Approach (ICD-10-PCS; 2025-01-07)
PROC: 0DBE8ZX Excision of Large Intestine, Via Natural or Artificial Opening Endoscopic, Diagnostic (ICD-10-PCS; 2025-01-10)
PROC: 0DB58ZX Excision of Esophagus, Via Natural or Artificial Opening Endoscopic, Diagnostic (ICD-10-PCS; principal; 2025-01-10 11:30)
PROC: 0DB68ZX Excision of Stomach, Via Natural or Artificial Opening Endoscopic, Diagnostic (ICD-10-PCS; 2025-01-10 11:30)
DX: D64.9 Anemia, unspecified (principal); I50.32 Chronic diastolic (congestive) heart failure; I48.20 Chronic atrial fibrillation, unspecified; I47.20 Ventricular tachycardia, unspecified; J90 Pleural effusion, not elsewhere classified; R78.81 Bacteremia; K92.2 Gastrointestinal hemorrhage, unspecified; A04.8 Other specified bacterial intestinal infections; D58.9 Hereditary hemolytic anemia, unspecified; J44.9 Chronic obstructive pulmonary disease, unspecified; E03.9 Hypothyroidism, unspecified; I27.20 Pulmonary hypertension, unspecified; I11.0 Hypertensive heart disease with heart failure; I73.9 Peripheral vascular disease, unspecified; Z95.2 Presence of prosthetic heart valve; I08.3 Combined rheumatic disorders of mitral, aortic and tricuspid valves; I35.2 Nonrheumatic aortic (valve) stenosis with insufficiency; E78.5 Hyperlipidemia, unspecified; I25.10 Atherosclerotic heart disease of native coronary artery without angina pectoris; E80.4 Gilbert syndrome; B96.81 Helicobacter pylori [H. pylori] as the cause of diseases classified elsewhere; K29.50 Unspecified chronic gastritis without bleeding; K64.8 Other hemorrhoids; K57.90 Diverticulosis of intestine, part unspecified, without perforation or abscess without bleeding; K31.7 Polyp of stomach and duodenum; D12.6 Benign neoplasm of colon, unspecified; K63.5 Polyp of colon; K44.9 Diaphragmatic hernia without obstruction or gangrene
CPT/HCPCS: 36415; 36430; 71045-TC-FY; 71046-TC-FY; 71250-TC; 74176-TC; 76705-TC; 80048; 80053; 80061; 81003; 82248; 82272; 82378; 82550; 82728; 82784; 83010; 83036; 83516; 83540; 83550; 83615; 83735; 84153; 84443; 84484; 85025; 85027; 85610; 85730; 86803; 86850; 86880; 86900; 86901; 86922; 87340; 87389; 87517; 88305-TC; 88341-TC; 88342-TC; 93005; 93010; 97116-GP; 97162-GP; 99285-25; G0378; J1756; P9038; P9058